=== PATIENT | male | born 1955 | race Caucasian/White ===

== ENCOUNTER → 2023-02-06 | Outpatient (CLI) | payer OTHER | LOC: RAD 16:59 | DX: M84.452A Pathological fracture, left femur, initial encounter for fracture (principal); S83.242A Other tear of medial meniscus, current injury, left knee, initial encounter; M94.8X8 Other specified disorders of cartilage, other site; M25.462 Effusion, left knee; M65.88 Other synovitis and tenosynovitis, other site; M22.42 Chondromalacia patellae, left knee; M71.22 Synovial cyst of popliteal space [Baker], left knee ==